=== PATIENT | male | born 1965 | race Caucasian/White ===

== ENCOUNTER 2018-06-18 11:47 | Emergency (ER) | payer SELFPAY ==
[~2018-06-18] VITALS: Ht 172.7 cm; Wt 81.6 kg
[2018-06-18 11:55] VITALS: BP 124/71
--- NOTE | 2018-06-18 12:24 | PHYS DOC ---
Past Medical History Past Medical History: Hepatitis, Other Additional Past Medical Histor: OCCASSIONAL etoh,smoking. Cured Hep. C hx. Past Surgical History: Other Additional Past Surgical Histo: dental surgery Alcohol Use: Occasionally Drug Use: None Adult General Chief Complaint Chief Complaint: RIB PAIN [facility] HPI Patient is a 53 year old male who presents with was at work when he slipped and fell tearing a large oxygen taking and when he landed his ribs landed on top of the oxygen tank. Patient complains of right rib pain 7 out of 10 and states he heard a pop. Patient states he has a sharp pain that she was breathing in. Vital signs are within normal limits. Review of Systems Review of Systems Constitutional: Denies fever or chills [] Eyes: Denies change in visual acuity, redness, or eye pain [] HENT: Denies nasal congestion or sore throat [] Respiratory: Denies cough or shortness of breath [] Cardiovascular: No additional information not addressed in HPI [] GI: Denies abdominal pain, nausea, vomiting, bloody stools or diarrhea [] : Denies dysuria or hematuria [] Musculoskeletal: Right rib pain. Denies back pain or joint pain [] Integument: Denies rash or skin lesions [] Neurologic: Denies headache, focal weakness or sensory changes [] Endocrine: Denies polyuria or polydipsia [] All other systems were reviewed and found to be within normal limits, except as documented in this note. Current Medications Current Medications Current Medications Medications (Trade) Dose Ordered Sig/Keely Start Time Stop Time Status Last Admin Dose Admin Acetaminophen/ Hydrocodone Bitart (Lortab 5/325) 1 tab 1X ONCE 06/18/18 12:30 06/18/18 12:31 DC 06/18/18 12:37 1 TAB Allergies Allergies Allergies Coded Allergies Type Severity Reaction Last Updated Verified Penicillins Allergy Intermediate rash/hives 06/18/18 Yes Physical Exam Physical Exam Constitutional: Well developed, well nourished, no acute distress, non-toxic appearance. [] HENT: Normocephalic, atraumatic, bilateral external ears normal, oropharynx moist, no oral exudates, nose normal. [] Eyes: PERRLA, EOMI, conjunctiva normal, no discharge. [] Neck: Normal range of motion, no tenderness, supple, no stridor. [] Cardiovascular:Heart rate regular rhythm, no murmur [] Lungs & Thorax: Bilateral breath sounds clear to auscultation EXCEPT for Right mid lobe that has expiratory wheeze[] Abdomen: Bowel sounds normal, soft, no tenderness, no masses, no pulsatile masses. [] Skin: Warm, dry, no erythema, no rash. [] Back: No tenderness, no CVA tenderness. [] Extremities: Right ribs tenderness, no cyanosis, no clubbing, ROM intact, no edema. [] Neurologic: Alert and oriented X 3, normal motor function, normal sensory function, no focal deficits noted. [] Psychologic: Affect normal, judgement normal, mood normal. [] Current Patient Data Vital Signs Vital Signs Date Time Temp Pulse Resp B/P (MAP) Pulse Ox O2 Delivery O2 Flow Rate FiO2 06/18/18 12:37 20 95 Room Air 06/18/18 11:55 98.0 62 124/71 (88) 98.0 EKG EKG [] Radiology/Procedures Radiology/Procedures []Right ribs Impressions: [facility] [address] [place], [place] [id number] IMAGING REPORT Signed PATIENT: VINNY SEGURA ACCOUNT: [id number] : 1965 LOCATION: ER AGE: 53 SEX: M EXAM STATUS: PRE ER ORD. PHYSICIAN: SANTIAGO FLORES APRN REASON: fall PROCEDURE: RIBS RIGHT AND PA CHEST Indication: Fall with pain to the right lateral ribs TECHNIQUE: PA chest and 3 views of the right ribs COMPARISON: None FINDINGS: Heart is normal in size. Lungs are clear. No pneumothorax or pleural effusion. Nondisplaced fracture is seen of the right lateral seventh rib and questionably eighth rib. IMPRESSION: As above. Electronically signed by: Earnest Amezquita DO (06/18/2018 12:49 PM) [id number] DICTATED and SIGNED BY: EARNEST AMEZQUITA DO DATE: 06/18/18 1247 Course & Med Decision Making Course & Med Decision Making Patient is a 53 year old male who presents with was at work when he slipped and fell tearing a large oxygen taking and when he landed his ribs landed on top of the oxygen tank. Patient complains of right rib pain 7 out of 10 and states he heard a pop. Patient states he has a sharp pain that she was breathing in. Vital signs are within normal limits. No crepitus, deformity, bruising or edema seen or felt right ribs. Lung sounds are clear in all lobes except for mid right lung had a expiratory wheezes. Abdomen is soft and nontender. Heart rate regular without murmur. Night hitting his head or seen.. Patient denies any chest pain or trauma to his chest. X-ray shows Nondisplaced fracture is seen of the right lateral seventh rib and questionably eighth rib. Patient to be educated about splinting and incentive spirometry. Patient follow-up with his primary care doctor as soon as possible. Patient is given pain medication prescription. Dragon Disclaimer Dragon Disclaimer This electronic medical record was generated, in whole or in part, using a voice recognition dictation system. Departure Departure Impression: Primary Impression: Rib fracture Disposition: HOME, SELF-CARE Condition: STABLE Referrals: UNKNOWN PCP NAME (PCP) Patient Instructions: Rib Fracture Additional Instructions: Call your primary care doctor for follow-up care. Use splinting techniques and inspirometry as educated. Take medications as prescribed. No heavy lifting or work for at least a week. Scripts Ibuprofen (IBUPROFEN) 600 Mg Tablet 600 MG PO PRN Q6HRS PRN for INFLAMMATION, #15 TAB Prov: SANTIAGO FLORES APRN 06/18/18 Hydrocodone/Apap 5-325 (NORCO 5-325 TABLET) 1 Each Tablet 1 TAB PO PRN Q6HRS PRN for PAIN, #10 TAB 0 Refills Prov: SANTIAGO FLORES APRN 06/18/18 Problem Qualifiers Primary Impression: Rib fracture Encounter type: initial encounter Rib fracture type: single rib Fracture type: closed Laterality: right Qualified Codes: S22.31XA - Fracture of one rib, right side, initial encounter for closed fracture SANTIAGO FLORES APRN Jun 18, 2018 12:24
[2018-06-18] MEDS ORDERED: HYDROcodone/APAP 5/325MG 1 TAB TABLET PO ONE (12:30)
--- NOTE | 2018-06-18 12:52 | RAD ---
Indication: Fall with pain to the right lateral ribs TECHNIQUE: PA chest and 3 views of the right ribs COMPARISON: None FINDINGS: Heart is normal in size. Lungs are clear. No pneumothorax or pleural effusion. Nondisplaced fracture is seen of the right lateral seventh rib and questionably eighth rib. IMPRESSION: As above. Electronically signed by: Earnest Morrow DO (06/18/2018 12:49 PM) [id number]
[2018-06-18] MEDS ORDERED: IBUP-1007 PO (13:23)
[2018-06-18] MEDS ORDERED: HYDR-3164 PO (13:23)
== END 2018-06-18 13:50 | disposition home or self-care (01) ==
LOC: ER 11:47
DX: S22.31XA Fracture of one rib, right side, initial encounter for closed fracture (principal); F17.200 Nicotine dependence, unspecified, uncomplicated; Z88.0 Allergy status to penicillin; W01.0XXA Fall on same level from slipping, tripping and stumbling without subsequent striking against object, initial encounter; Y93.89 Activity, other specified; Y92.89 Other specified places as the place of occurrence of the external cause; Y99.8 Other external cause status
CPT/HCPCS: 71101; 99284

== ENCOUNTER 2019-07-25 14:54 | Emergency (ER) | payer SELFPAY ==
[~2019-07-25] VITALS: Ht 172.7 cm; Wt 82.8 kg
[~2019-07-25 14:54] MED LIST: HYDR-3164 PO; IBUP-1007 PO
[2019-07-25 15:25] VITALS: BP 162/111
--- NOTE | 2019-07-25 15:58 | PHYS DOC ---
Past Medical History Past Medical History: Hepatitis, Other Additional Past Medical Histor: OCCASSIONAL etoh,smoking. Cured Hep. C hx. Past Surgical History: Other Additional Past Surgical Histo: dental surgery Smoking Status: Current Every Day Smoker Alcohol Use: Occasionally Drug Use: None Adult General Chief Complaint Chief Complaint: Neck Pain HPI HPI Patient is a 54 year old Male who presents with 2 weeks of left-sided neck pain that is a pulling sensation and a stinging. Patient states he has not been taking any medication for. He states 3 weeks ago he had a camper shell fall down on his head and he had a headache but was not seen for any of this and took some ibuprofen and it went away. He states a week after that happened the neck started hurting. He comes in today asking for Flexeril and tramadol. He rates his pain an 8 out of 10 that comes and goes. He states that he sees a doctor at a clinic down off of [address] in [place]. Review of Systems Review of Systems Musculoskeletal: Left sided neck pain. Denies back pain or joint pain [] All other systems were reviewed and found to be within normal limits, except as documented in this note. Allergies Allergies Allergies Coded Allergies Type Severity Reaction Last Updated Verified Penicillins Allergy Intermediate rash/hives 06/18/18 Yes naproxen Adverse Reaction Intermediate "I don't act right, I get all shifty eyed" 07/25/19 Yes Physical Exam Physical Exam Constitutional: Well developed, well nourished, no acute distress, non-toxic appearance. [] HENT: Normocephalic, atraumatic, bilateral external ears normal, oropharynx moist, no oral exudates, nose normal. [] Eyes: PERRLA, EOMI, conjunctiva normal, no discharge. [] Neck: Normal range of motion, no tenderness, supple, no stridor. [] Cardiovascular:Heart rate regular rhythm, no murmur [] Lungs & Thorax: Bilateral breath sounds clear to auscultation [] Abdomen: Bowel sounds normal, soft, no tenderness, no masses, no pulsatile masses. [] Skin: Warm, dry, no erythema, no rash. [] Back: No tenderness, no CVA tenderness. [] Extremities: No tenderness, no cyanosis, no clubbing, ROM intact, no edema. [] Neurologic: Alert and oriented X 3, normal motor function, normal sensory function, no focal deficits noted. [] Psychologic: Affect normal, judgement normal, mood normal. Normal Physical Exam[] Current Patient Data Vital Signs Vital Signs Date Time Temp Pulse Resp B/P (MAP) Pulse Ox O2 Delivery O2 Flow Rate FiO2 07/25/19 15:25 98.0 70 18 162/111 (128) 95 Room Air 98.0 EKG EKG [] Radiology/Procedures Radiology/Procedures [] Course & Med Decision Making Course & Med Decision Making Pertinent Labs and Imaging studies reviewed. (See chart for details) Alert and oriented. Speaks in full clear sentences. Ambulatory with a steady gait. Skin pink warm and dry. No focal bony spinal tenderness with palpation. No pain with palpation to the whole neck itself. Patient does have range of motion of his neck although it is more painful when he looks to the right on the left side of his neck. PERRLA. Moves all extremities equally with equal strength. Patient did drive himself here today. Patient is medically screened. Patient educated that he should start taking ibuprofen to help with his pain and inflammation in his neck. States that he needs to follow-up with his primary care provider. Denies any numbness or tingling in any of his extremities. Lungs are clear to auscultation all lobes. Patient denies chest pain, dizziness, headache, shortness of breath, numbness or tingling, loss of bowel and bladder, back pain, abdominal pain, nausea, vomiting, LOC, fever, recent illness Patient was medically screened and decided not to continue on with care. Patient to follow-up at his clinic. [] Dragon Disclaimer Dragon Disclaimer This electronic medical record was generated, in whole or in part, using a voice recognition dictation system. Departure Departure Impression: Primary Impression: Neck pain Additional Impression: Encounter for medical screening examination Disposition: HOME, SELF-CARE Condition: STABLE Referrals: NO PCP (PCP) Problem Qualifiers SANTIAGO FLORES APRN Jul 25, 2019 15:58
== END 2019-07-25 15:55 | disposition home or self-care (01) ==
LOC: ER 14:54
DX: M54.2 Cervicalgia (principal); R51 Headache; K73.9 Chronic hepatitis, unspecified; F17.200 Nicotine dependence, unspecified, uncomplicated; Z98.890 Other specified postprocedural states; Z88.0 Allergy status to penicillin; Z88.6 Allergy status to analgesic agent
CPT/HCPCS: 99281